=== PATIENT | female | born 1985 | race Hispanic/Latino ===

== ENCOUNTER → 2024-01-28 | Emergency (ER) | payer OTHER ==
[~2024-01-28] VITALS: Ht 170.2 cm; Wt 90.7 kg
[~2024-01-28] MED LIST: CEPH500B PO; KETO10TA2 PO
[2024-01-28] MEDS: KETOROLAC 15MG/ML VIAL (15MG/ML) IV ONE (11:31)
[2024-01-28 13:11] VITALS: BP 120/70; PULSE 79; RESP 16; O2SAT 98
== END ==
LOC: EDH 11:17
DX: I80.3 Phlebitis and thrombophlebitis of lower extremities, unspecified (principal); Z90.49 Acquired absence of other specified parts of digestive tract; Z90.710 Acquired absence of both cervix and uterus
CPT/HCPCS: 99285; 96374; 93971; J1885